=== PATIENT | female | born 2000 | race Two or more races ===

== ENCOUNTER 2021-03-22 07:39 | Inpatient (IN) | payer OTHER ==
[~2021-03-22] VITALS: Ht 160 cm; Wt 73.9 kg
[2021-03-22] MEDS ORDERED: PRENATAL TABLE1 EAC1 PO (08:36)
[2021-03-22] MEDS ORDERED: FOLIC ACID20 MG PO (08:37)
[2021-03-25] MEDS ORDERED: PERCOCET 5-3251 EACH PO (09:17)
== END 2021-03-25 14:00 | disposition home or self-care (01) | DRG 788 ==
LOC: OB/GYN 07:39 → LDR 07:39 → O/R 16:16 → OB/GYN 17:29
PROVIDERS: ADMIT Obstetrics & Gynecology; ATTEND Obstetrics & Gynecology
PROC: 4A1HXCZ Monitoring of Products of Conception, Cardiac Rate, External Approach (ICD-10-PCS; 2021-03-22)
PROC: 3E033VJ Introduction of Other Hormone into Peripheral Vein, Percutaneous Approach (ICD-10-PCS; 2021-03-22)
PROC: 10D00Z1 Extraction of Products of Conception, Low, Open Approach (ICD-10-PCS; principal; 2021-03-22 15:00)
DX: O61.0 Failed medical induction of labor (principal); O42.02 Full-term premature rupture of membranes, onset of labor within 24 hours of rupture; Z3A.39 39 weeks gestation of pregnancy; Z37.0 Single live birth; Z20.822 Contact with and (suspected) exposure to COVID-19